=== PATIENT | male | born 1950 | race Caucasian/White ===

== ENCOUNTER 2018-04-11 07:15 | Inpatient (IN) | payer OTHER ==
[~2018-04-11] VITALS: Ht 167.6 cm; Wt 75.8 kg
[~2018-04-11 07:15] MED LIST: AMIO200T33 PO; ASPI81TA27 PO; ATOR40TA52 PO; CLOP75TA41 PO; FURO40TA4 PO; INSU70IN3 SC; SPIR25TA89 PO
[2018-04-11] MEDS ORDERED: LIDOCAINE 2% (LOCAL ANESTH.) PF 5ml SDV ONE (07:22)
[2018-04-11] MEDS ORDERED: IODIXANOL 320MG/ML 100ML BTL IV ONE (07:22)
[2018-04-11] MEDS ORDERED: MIDAZOLAM HCL 1MG/1ML-2 ML VIAL ONE (08:25)
[2018-04-11] MEDS ORDERED: fentaNYL CITRATE 100 MCG/2 ML VL ONE (08:25)
[2018-04-11] MEDS ORDERED: ANGIOMAX 250 MG VIAL IV ONE (08:25)
[2018-04-11] MEDS ORDERED: SODIUM CHL 0.9% 50 ML ONE (08:26)
[2018-04-11] MEDS ORDERED: VERAPAMIL 2.5MG/ML INJ 2ML VIAL IV ONE (08:28)
[2018-04-11] MEDS ORDERED: ASPirin 325 MG TAB ONE (08:53)
[2018-04-11] MEDS ORDERED: TICAGRELOR 90 MG TAB ONE (08:53)
[2018-04-11] MEDS ORDERED: ONDANSETRON HCL 4 MG/2 ML VIAL IV PRN (10:15)
[2018-04-11] MEDS ORDERED: ACETAMINOPHEN 500 MG TAB PO PRN (10:15)
[2018-04-11] MEDS ORDERED: DEXTROSE (50%) 50ML SYRG IV PRN (10:15)
[2018-04-11] MEDS ORDERED: MORPHINE SULFATE 4 MG/ML SYR/VIAL IV PRN (10:15)
[2018-04-11] MEDS ORDERED: HYDROcodone-ACET 5/325MG TAB PO PRN (10:15)
[2018-04-11] MEDS ORDERED: NITROGLYCERIN 0.4 MG SL TAB SL PRN (10:15)
[2018-04-11] MEDS ORDERED: AMIODARONE HCL 200 MG TAB PO ONE (10:30)
[2018-04-11] MEDS ORDERED: ASPirin-EC 81 mg tab PO ONE (10:30)
[2018-04-11] MEDS ORDERED: SPIRONOLACTONE 25 MG TAB PO ONE (10:30)
[2018-04-11] MEDS ORDERED: CLOPIDOGREL BISULFATE 75 MG TAB PO ONE (10:30)
[2018-04-11 10:40] VITALS: BP 107/55
[2018-04-11] MEDS: InsuLIN REG 1unit/0.01ml Soln (100units/ml) SC SCH ×3 (11:30→21:13)
[2018-04-11] MEDS: ACCU-CHEK COMFORT CURVE STRIP VI SCH ×3 (11:30→21:12)
[2018-04-11] MEDS: FUROSEMIDE 40 MG TAB PO SCH ×2 (12:23→21:20)
[2018-04-11 13:00] VITALS: BP 112/57
[2018-04-11] MEDS ORDERED: POM PO (14:25)
[2018-04-11] MEDS: SODIUM CHLORIDE 0.9% 1,000 ML IV SCH (14:30)
[2018-04-11 17:07] VITALS: BP 124/65
[2018-04-11] MEDS: AMIODARONE HCL 200 MG TAB PO SCH (21:20)
[2018-04-11] MEDS: SPIRONOLACTONE 25 MG TAB PO SCH (21:21)
[2018-04-11 22:00] VITALS: BP_SYST 121; BP_SYST 155; BP_DIAS 54; BP_DIAS 55
[2018-04-11] MEDS ORDERED: ATORVASTATIN 20 MG TAB PO SCH (22:00)
[2018-04-12] MEDS: SODIUM CHLORIDE 0.9% 1,000 ML IV SCH (03:58)
[2018-04-12 05:00] VITALS: BP 131/59
[2018-04-12] MEDS: InsuLIN REG 1unit/0.01ml Soln (100units/ml) SC SCH ×2 (06:07→11:13)
[2018-04-12] MEDS: ACCU-CHEK COMFORT CURVE STRIP VI SCH ×2 (06:07→11:13)
[2018-04-12 07:39] LABS: Hematocrit 39.5 % (41.0-53.0); Hemoglobin 11.8 g/dL (13.5-17.5); Mean Corpuscular Hemoglobin 24.7 pg (28.0-32.0); Mean Corpuscular Hgb Conc. 29.9 g/dL (32.0-36.0); Mean Corpuscular Volume 82.6 fL (80.0-100.0); Platelet Count (auto) 219 10^3/uL (140-450); Red Blood Cells 4.78 10^6/uL (4.5-5.90)
[2018-04-12 07:53] LABS: Red Cell Distribution Width 25.3 % (11.8-14.3)
[2018-04-12 07:55] LABS: BUN/Creatinine Ratio 27.2; Calcium 8.2 mg/dL (8.5-10.1); Potassium 4.8 mmol/L (3.5-5.1); White Blood Cell 190.3 10^3/uL (4.4-10.8)
[2018-04-12 07:56] LABS: Band Neutrophils % (manual) 0; Basophils % (manual) 0 (0.0-2.0); Blast Cells 0; Eosinophils % (manual) 0 (0-7); Metamyelocytes % 0; Myelocytes % 0; Promyelocytes % 0
[2018-04-12] MEDS: AMIODARONE HCL 200 MG TAB PO SCH (08:56)
[2018-04-12] MEDS: SPIRONOLACTONE 25 MG TAB PO SCH (08:56)
[2018-04-12] MEDS: FUROSEMIDE 40 MG TAB PO SCH (08:57)
[2018-04-12 09:00] VITALS: BP 123/59
[2018-04-12 09:15] LABS: Lymphocytes % (manual) 76 (10.0-50.0); Monocytes % (manual) 3 (0-12); Reactive Lymphocytes 17
[2018-04-12] MEDS ORDERED: ASPirin-EC 81 mg tab PO SCH (10:00)
[2018-04-12] MEDS ORDERED: CLOPIDOGREL BISULFATE 75 MG TAB PO SCH (10:00)
[2018-04-12 12:39] VITALS: BP 124/75
== END 2018-04-12 14:44 | disposition home or self-care (01) | DRG 247 ==
LOC: CATH 07:15 → TELE-WESTW 07:16
PROVIDERS: ADMIT Internal Medicine; ATTEND Internal Medicine
PROC: 027136Z Dilation of Coronary Artery, Two Arteries with Three Drug-eluting Intraluminal Devices, Percutaneous Approach (ICD-10-PCS; principal; 2018-04-11)
PROC: 4A023N7 Measurement of Cardiac Sampling and Pressure, Left Heart, Percutaneous Approach (ICD-10-PCS; 2018-04-11)
PROC: B2111ZZ Fluoroscopy of Multiple Coronary Arteries using Low Osmolar Contrast (ICD-10-PCS; 2018-04-11)
DX: I21.4 Non-ST elevation (NSTEMI) myocardial infarction (principal); C91.10 Chronic lymphocytic leukemia of B-cell type not having achieved remission; I13.0 Hypertensive heart and chronic kidney disease with heart failure and stage 1 through stage 4 chronic kidney disease, or unspecified chronic kidney disease; I50.42 Chronic combined systolic (congestive) and diastolic (congestive) heart failure; E78.00 Pure hypercholesterolemia, unspecified; I25.5 Ischemic cardiomyopathy; E11.51 Type 2 diabetes mellitus with diabetic peripheral angiopathy without gangrene; I25.110 Atherosclerotic heart disease of native coronary artery with unstable angina pectoris; F17.200 Nicotine dependence, unspecified, uncomplicated; E11.22 Type 2 diabetes mellitus with diabetic chronic kidney disease; N18.9 Chronic kidney disease, unspecified; Z80.1 Family history of malignant neoplasm of trachea, bronchus and lung; Z80.6 Family history of leukemia; Z82.49 Family history of ischemic heart disease and other diseases of the circulatory system; Z86.74 Personal history of sudden cardiac arrest; Z79.82 Long term (current) use of aspirin; Z79.899 Other long term (current) drug therapy; Z79.02 Long term (current) use of antithrombotics/antiplatelets; Z86.73 Personal history of transient ischemic attack (TIA), and cerebral infarction without residual deficits
CPT/HCPCS: 36415; 80048; 82962; 83880; 85007; 85027; 92928; 93005; 93458; 99152; A6257; C1874; J1815; J2001; J2250; Q9967

== ENCOUNTER → 2018-07-10 | Outpatient (CLI) | payer OTHER ==
[~2018-07-10] MED LIST changes: +POM PO; +SPIR25TA8 PO; -SPIR25TA89 PO
[2018-07-10 14:29] LABS: Albumin 3.7 g/dL (3.4-5.0); Calcium 8.7 mg/dL (8.5-10.1); Potassium 4.9 mmol/L (3.5-5.1)
[2018-07-10 14:33] LABS: BUN/Creatinine Ratio 12.5; Bilirubin, Total 0.5 mg/dL (0.2-1.0); Total Protein 6.6 g/dL (6.4-8.2)
== END | disposition home or self-care (01) ==
LOC: LAB 13:13
PROVIDERS: ATTEND Internal Medicine
DX: I25.10 Atherosclerotic heart disease of native coronary artery without angina pectoris (principal); I42.9 Cardiomyopathy, unspecified
CPT/HCPCS: 36415; 80053

== ENCOUNTER → 2018-07-17 | Outpatient (CLI) | payer OTHER ==
[~2018-07-17] MED LIST changes: +IOHEXOL 350 MG/ML 100ML IJ ONE; +METOPROLOL TARTRATE 1MG/1ML-5ML VIAL IV ONE; +NITROGLYCERIN 0.4 MG SL TAB SL ONE
== END | disposition home or self-care (01) ==
LOC: CATH 08:57
PROVIDERS: ATTEND Internal Medicine
DX: I25.10 Atherosclerotic heart disease of native coronary artery without angina pectoris (principal); J43.9 Emphysema, unspecified
CPT/HCPCS: 75571; 75574; Q9967

== ENCOUNTER 2019-10-09 08:03 | Inpatient (IN) | payer OTHER ==
[~2019-10-09] VITALS: Ht 167.6 cm; Wt 61.9 kg
[~2019-10-09 08:03] MED LIST changes: -AMIO200T33 PO; +ASPI-404 PO; -ASPI81TA27 PO; +INS7030I SC; -INSU70IN3 SC; -IOHEXOL 350 MG/ML 100ML IJ ONE; +LORA0.5T11 PO; +METO25TA93 PO; -METOPROLOL TARTRATE 1MG/1ML-5ML VIAL IV ONE; -NITROGLYCERIN 0.4 MG SL TAB SL ONE; -SPIR25TA8 PO; +TEMA30CA PO
[2019-10-09 09:31] LABS: Hemoglobin 13.5 g/dL (13.5-17.5); Mean Corpuscular Volume 80.6 fL (80.0-100.0)
[2019-10-09 09:34] LABS: Hematocrit 44.9 % (41.0-53.0); Mean Corpuscular Hemoglobin 24.3 pg (28.0-32.0); Mean Corpuscular Hgb Conc. 30.1 g/dL (32.0-36.0); Platelet Count (auto) 218 10^3/uL (140-450); Red Blood Cells 5.58 10^6/uL (4.5-5.90)
[2019-10-09 09:43] LABS: Red Cell Distribution Width 20.1 % (11.8-14.3)
[2019-10-09 09:47] LABS: Band Neutrophils % (manual) 0; Basophils % (manual) 0 (0.0-2.0); Blast Cells 0; Eosinophils % (manual) 0 (0-7); Metamyelocytes % 0; Myelocytes % 0; Promyelocytes % 0; Reactive Lymphocytes 0
[2019-10-09 09:48] LABS: INR 1.46 (0.9-1.15); Partial Thromboplastin Time 25.6 sec (23.64-32.05)
[2019-10-09 09:52] LABS: Albumin 3.8 g/dL (3.4-5.0); Calcium 8.4 mg/dL (8.5-10.1); Magnesium 2.6 mg/dL (1.6-2.6)
[2019-10-09 09:58] LABS: BUN/Creatinine Ratio 19.8; Bilirubin, Total 2.5 mg/dL (0.2-1.0); Total Protein 6.2 g/dL (6.4-8.2)
[2019-10-09 10:30] LABS: Potassium 6.8 mmol/L (3.5-5.1)
[2019-10-09] MEDS ORDERED: CALCIUM GLUC 4.65meq/50ml D5AE 50 ML IV ONE ×2 (10:45→14:00)
[2019-10-09] MEDS ORDERED: InsuLIN REG 1unit/0.01ml Soln (100units/ml) IV ONE ×2 (10:45→14:00)
[2019-10-09] MEDS ORDERED: SODIUM BICARBONATE 8.4 % INJ 50ML VIAL IV ONE ×2 (10:45→14:00)
[2019-10-09 11:17] LABS: Lactic Acid w/Reflex 9.1 mmol/L (0.4-2.0)
[2019-10-09 11:18] LABS: Lymphocytes % (manual) 81 (10.0-50.0); Monocytes % (manual) 1 (0-12)
[2019-10-09] MEDS ORDERED: ALBUTEROL SULF 2.5 MG/0.5ML(0.5%) NEB SOLN NEB ONE ×2 (11:30→14:00)
[2019-10-09] MEDS ORDERED: AZITHROMYCIN 500MG/ 250ML 250 ML IV ONE (12:45)
[2019-10-09] MEDS ORDERED: cefTRIAXone 1GM/50ML D5W 50 ML IV ONE (12:45)
[2019-10-09] MEDS ORDERED: FUROSEMIDE 20 MG/2 ML VIAL IV SCH (13:45)
[2019-10-09] MEDS ORDERED: SODIUM CHLORIDE 0.9% 1,000 ML IV SCH (13:45)
[2019-10-09] MEDS ORDERED: NITROGLYCERIN 0.4 MG SL TAB SL PRN (13:45)
[2019-10-09] MEDS ORDERED: MORPHINE SULF INJ 2 MG/ML SYRINGE 1ML IV PRN (13:45)
[2019-10-09] MEDS ORDERED: DEXTROSE (50%) 50ML SYRG IV PRN (13:45)
[2019-10-09] MEDS ORDERED: FUROSEMIDE 20 MG/2 ML VIAL IV ONE (14:00)
[2019-10-09] MEDS: METOPROLOL SUCCINATE XL 50 MG TAB PO SCH (14:00)
[2019-10-09] MEDS ORDERED: SODIUM ZIRCONIUM CYCL 10 GM PAK PO ONE (14:00)
[2019-10-09] MEDS ORDERED: DEXTROSE (50%) 50ML SYRG IV ONE (14:00)
[2019-10-09] MEDS ORDERED: TEMAZEPAM 15 MG CAP PO PRN (14:15)
[2019-10-09 15:09] LABS: Calcium 8.1 mg/dL (8.5-10.1); Potassium 5.3 mmol/L (3.5-5.1)
[2019-10-09 15:11] LABS: BUN/Creatinine Ratio 25.6; Total Protein 5.1 g/dL (6.4-8.2)
[2019-10-09 15:13] LABS: Phosphorus 6.9 mg/dL (2.5-4.90); Uric Acid 10.4 mg/dL (3.5-7.2)
[2019-10-09] MEDS ORDERED: levoFLOXacin 500MG 100 ML IV ONE (15:15)
--- NOTE | 2019-10-09 16:30 | NUR ---
Received orders for home health. Patient has [facility] [phone] set up for discharge from 10.08.2019. Placed a follow up call, spoke with Randa and was advised they will accept this patient onto services upon discharge. Auth already obtained [id number] from [facility] [place], [place] [phone].
[2019-10-09] MEDS: FUROSEMIDE 20 MG/2 ML VIAL IV SCH (17:50)
[2019-10-09] MEDS: ACCU-CHEK COMFORT CURVE STRIP VI SCH ×3 (17:51→23:46)
[2019-10-09] MEDS: metroNIDAZOLE 500MG/100ML 100 ML IV SCH ×2 (18:50→21:44)
[2019-10-09] MEDS: InsuLIN REG 1unit/0.01ml Soln (100units/ml) SC SCH ×3 (19:01→23:46)
[2019-10-09] MEDS: CALCIUM ACETATE 667 MG CAP PO SCH (19:01)
[2019-10-09] MEDS: SODIUM BICARBONATE 50ML VIAL 75 ML in D5W 5% 1,000 ML IV SCH (19:50)
[2019-10-09 20:13] LABS: BUN/Creatinine Ratio 25.6; Potassium 5.5 mmol/L (3.5-5.1)
[2019-10-09 20:17] LABS: Magnesium 2.2 mg/dL (1.6-2.6)
[2019-10-09] MEDS ORDERED: ONDANSETRON HCL 4 MG/2 ML VIAL IV PRN (21:45)
[2019-10-09] MEDS: ATORVASTATIN 20 MG TAB PO SCH (22:05)
[2019-10-09] MEDS: TEMAZEPAM 15 MG CAP PO PRN (23:02)
[2019-10-10] MEDS: ACCU-CHEK COMFORT CURVE STRIP VI SCH ×6 (04:00→23:53)
[2019-10-10] MEDS: InsuLIN REG 1unit/0.01ml Soln (100units/ml) SC SCH ×6 (04:03→23:53)
[2019-10-10] MEDS: FUROSEMIDE 20 MG/2 ML VIAL IV SCH (06:00)
[2019-10-10] MEDS: metroNIDAZOLE 500MG/100ML 100 ML IV SCH ×3 (06:00→21:34)
[2019-10-10] MEDS: SODIUM BICARBONATE 50ML VIAL 75 ML in D5W 5% 1,000 ML IV SCH (06:45)
[2019-10-10 06:49] LABS: Mean Corpuscular Hgb Conc. 32.2 g/dL (32.0-36.0); Platelet Count (auto) 166 10^3/uL (140-450)
[2019-10-10 06:52] LABS: Hematocrit 34.6 % (41.0-53.0); Hemoglobin 11.2 g/dL (13.5-17.5); Mean Corpuscular Hemoglobin 24.3 pg (28.0-32.0); Mean Corpuscular Volume 75.4 fL (80.0-100.0)
[2019-10-10 06:57] LABS: White Blood Cell 68.3 10^3/uL (4.4-10.8)
[2019-10-10 06:58] LABS: Band Neutrophils % (manual) 0; Basophils % (manual) 0 (0.0-2.0); Blast Cells 0; Eosinophils % (manual) 0 (0-7); Metamyelocytes % 0; Monocytes % (manual) 0 (0-12); Myelocytes % 0; Promyelocytes % 0
[2019-10-10 07:05] LABS: BUN/Creatinine Ratio 31.5; Calcium 7.9 mg/dL (8.5-10.1); Magnesium 2.5 mg/dL (1.6-2.6); Potassium 4.2 mmol/L (3.5-5.1)
[2019-10-10] MEDS: PATIENTS OWN MEDICATION PO SCH (07:59)
[2019-10-10 08:13] LABS: Lymphocytes % (manual) 84 (10.0-50.0); Reactive Lymphocytes 5
[2019-10-10] MEDS: CALCIUM ACETATE 667 MG CAP PO SCH ×3 (09:08→17:53)
[2019-10-10] MEDS: ASPirin-EC 81 mg tab PO SCH (10:00)
[2019-10-10] MEDS: CLOPIDOGREL BISULFATE 75 MG TAB PO SCH (10:00)
[2019-10-10] MEDS ORDERED: FUROSEMIDE 20 MG/2 ML VIAL IV SCH (10:00)
[2019-10-10] MEDS: FUROSEMIDE 20 MG TAB PO SCH (13:26)
[2019-10-10] MEDS: METOPROLOL SUCCINATE XL 50 MG TAB PO SCH (13:26)
[2019-10-10] MEDS: levoFLOXacin 250MG 50 ML IV SCH (13:39)
[2019-10-10 13:44] VITALS: BP 118/47
--- NOTE | 2019-10-10 15:22 | NUR ---
Telemetry admit from ER FELIPEKANDICE admitted to Telemetry unit after SBAR received. Patient oriented to CHRISTIE FERNANDO, RN primary RN, unit, room, bed, and unit policies regarding patient care and visiting hours. Patient now on continuous telemetry monitoring, tele box #1. Patient weighed by bedscale and encouraged to call if they need something. All questions and concerns addressed, patient verbalized understanding.
[2019-10-10 17:00] VITALS: BP 108/53
[2019-10-10] MEDS: ATORVASTATIN 20 MG TAB PO SCH (21:34)
[2019-10-10] MEDS: TEMAZEPAM 15 MG CAP PO PRN (21:34)
[2019-10-10 22:36] VITALS: BP 113/60
--- NOTE | 2019-10-11 03:14 | NUR ---
Opening Shift Note Assumed care of patient, patient asleep verbally awake and alert. No S/S of distress/SOB or pain. Instructed on POC and to call for assist PRN, will continue to monitor for changes Q1hr and PRN.
--- NOTE | 2019-10-11 03:34 | NUR ---
Care endorsed Endorsed care to night ELICEO Rincon. Patient resting in bed, no signs of distress, sob, or pain noted at this time.
[2019-10-11] MEDS: InsuLIN REG 1unit/0.01ml Soln (100units/ml) SC SCH ×3 (03:53→12:07)
[2019-10-11] MEDS: ACCU-CHEK COMFORT CURVE STRIP VI SCH ×3 (03:53→12:07)
[2019-10-11] MEDS: metroNIDAZOLE 500MG/100ML 100 ML IV SCH ×2 (05:16→13:39)
[2019-10-11 05:46] VITALS: BP 103/48
[2019-10-11 07:02] LABS: Red Cell Distribution Width 19.4 % (11.8-14.3)
[2019-10-11 07:04] LABS: Hematocrit 35.1 % (41.0-53.0); Hemoglobin 11.2 g/dL (13.5-17.5); Mean Corpuscular Hemoglobin 24.3 pg (28.0-32.0); Platelet Count (auto) 172 10^3/uL (140-450); Red Blood Cells 4.62 10^6/uL (4.5-5.90)
[2019-10-11 07:14] LABS: White Blood Cell 51.1 10^3/uL (4.4-10.8)
[2019-10-11 07:15] LABS: Band Neutrophils % (manual) 0; Basophils % (manual) 0 (0.0-2.0); Blast Cells 0; Metamyelocytes % 0; Monocytes % (manual) 0 (0-12); Myelocytes % 0; Promyelocytes % 0; Reactive Lymphocytes 0
[2019-10-11 07:18] LABS: Potassium 4.7 mmol/L (3.5-5.1)
[2019-10-11 07:20] LABS: BUN/Creatinine Ratio 29.8
[2019-10-11] MEDS: PATIENTS OWN MEDICATION PO SCH (07:31)
[2019-10-11] MEDS: CALCIUM ACETATE 667 MG CAP PO SCH ×2 (07:35→12:04)
[2019-10-11 07:39] LABS: Eosinophils % (manual) 1 (0-7); Lymphocytes % (manual) 89 (10.0-50.0)
[2019-10-11 09:00] VITALS: BP 120/70
--- NOTE | 2019-10-11 09:01 | NUR ---
CALLED Anjelica LOPEZ REGRADING DUPLICATE ORDER OF LASIX PO/IV AWAITING CALL BACK
--- NOTE | 2019-10-11 09:33 | NUR ---
called tyra bright regarding duplicate lasix order awaiting call back
--- NOTE | 2019-10-11 09:36 | NUR ---
dr burgos air liaison and special staff for nephro paged him awaiting call back
--- NOTE | 2019-10-11 09:47 | NUR ---
called sydnie wallace again regarding duplicate order and clarification
--- NOTE | 2019-10-11 09:49 | NUR ---
md wallace called back regarding clarification of order po lasix is to be given not iv, also updated md on am labs, per md he will be in to discharge the pt
[2019-10-11] MEDS: FUROSEMIDE 20 MG TAB PO SCH (09:57)
[2019-10-11] MEDS: levoFLOXacin 250MG 50 ML IV SCH (09:57)
[2019-10-11] MEDS: ASPirin-EC 81 mg tab PO SCH (09:58)
[2019-10-11] MEDS: METOPROLOL SUCCINATE XL 50 MG TAB PO SCH (09:58)
[2019-10-11] MEDS: CLOPIDOGREL BISULFATE 75 MG TAB PO SCH (09:59)
[2019-10-11] MEDS ORDERED: SODIUM FERR GLUC 62.5MG/5ML 125 MG in SODIUM CHL 0.9% 100 ML IV SCH (12:00)
[2019-10-11 13:00] VITALS: BP 107/49
--- NOTE | 2019-10-11 13:17 | NUR ---
assessment Patient is a 69 year old male who is alert and oriented. Patients cognitive abilities are intact. Prior to admission patient lived home with family and functioned independently. Patient informed me he is able to care for his own ADLs. Per patient he will return home to his prior living arrangements post discharge and family will transport him home. Patient has a cane and fww for home use. Patients PCP is Dr Martinez. Patient informed me he came to ER for stomach pain and was admitted. Patient has a home health eval. Patient agrees to home health eval. I informed patient he has a right to speak to a school social worker regarding all care. I informed patient he has a right to participate in any and all discharge planning. Patient has a POA and advanced directive. Patient verbalized understanding and agreed to discharge plan. Addendum: 10/11/19 at 1322 by Betty KNOX Amended: Links added.
[2019-10-11] MEDS ORDERED: METR500T PO (15:53)
[2019-10-11] MEDS ORDERED: FURO1TAB33 PO (15:53)
[2019-10-11] MEDS ORDERED: LEVO500T21 PO (15:53)
--- NOTE | 2019-10-11 16:41 | NUR ---
patient discharged home wheeled down to front lobby in wheelchair, pt ambulatory with a cane to transfer from wheel chair to car, pt accompanied by his daughter, pt alert orientated no respiratory distress noted, no complaint of pain or discomfort noted, midline line in cristian removed pressure dressing in place, tele monitor removed and sent ginna to tele room
[2019-10-22] MEDS ORDERED: IPR002IS HHN (15:08)
[2019-10-22] MEDS ORDERED: ALBU1.257 IN (15:08)
== END 2019-10-11 16:35 | disposition home health service (06) | DRG 391 ==
LOC: ER 08:03 → EDBD 08:03 → TELE 08:04 → TELE-EAST 10-10 15:46
PROVIDERS: ADMIT Internal Medicine; ATTEND Internal Medicine
PROC: 0W993ZZ Drainage of Right Pleural Cavity, Percutaneous Approach (ICD-10-PCS; principal; 2019-10-10)
DX: K52.9 Noninfective gastroenteritis and colitis, unspecified (principal); J96.01 Acute respiratory failure with hypoxia; J18.1 Lobar pneumonia, unspecified organism; I50.23 Acute on chronic systolic (congestive) heart failure; N17.9 Acute kidney failure, unspecified; I13.0 Hypertensive heart and chronic kidney disease with heart failure and stage 1 through stage 4 chronic kidney disease, or unspecified chronic kidney disease; C91.10 Chronic lymphocytic leukemia of B-cell type not having achieved remission; J98.11 Atelectasis; J90 Pleural effusion, not elsewhere classified; C85.90 Non-Hodgkin lymphoma, unspecified, unspecified site; I42.0 Dilated cardiomyopathy; N18.4 Chronic kidney disease, stage 4 (severe); E87.5 Hyperkalemia; N14.1 Nephropathy induced by other drugs, medicaments and biological substances; I73.9 Peripheral vascular disease, unspecified; G47.00 Insomnia, unspecified; I65.21 Occlusion and stenosis of right carotid artery; I65.22 Occlusion and stenosis of left carotid artery; I65.03 Occlusion and stenosis of bilateral vertebral arteries; E11.22 Type 2 diabetes mellitus with diabetic chronic kidney disease; E11.51 Type 2 diabetes mellitus with diabetic peripheral angiopathy without gangrene; T50.8X5A Adverse effect of diagnostic agents, initial encounter; E78.5 Hyperlipidemia, unspecified; F41.9 Anxiety disorder, unspecified; I25.10 Atherosclerotic heart disease of native coronary artery without angina pectoris; I25.2 Old myocardial infarction; Z82.49 Family history of ischemic heart disease and other diseases of the circulatory system; Z85.51 Personal history of malignant neoplasm of bladder; Z80.6 Family history of leukemia; Z86.73 Personal history of transient ischemic attack (TIA), and cerebral infarction without residual deficits; Z95.5 Presence of coronary angioplasty implant and graft; Z87.891 Personal history of nicotine dependence; Z80.1 Family history of malignant neoplasm of trachea, bronchus and lung
CPT/HCPCS: 32555; 36415; 71045; 74176; 76604; 76775; 76942; 80048; 80053; 82150; 82550; 82962; 83605; 83690; 83735; 83986; 84100; 84132; 84155; 84484; 84550; 85007; 85027; 85610; 85730; 87040; 87081; 93005; 94640; 96365; 96367; 96375; G0378; J0610; J0696; J1756; J1815; J1956; J2405; J3490